=== PATIENT | female | born 1960 | race Caucasian/White ===

== ENCOUNTER 2021-04-16 15:41 | Inpatient (IN) ==
[2021-04-16] MEDS ORDERED: fentaNYL 100 mcg/2 ml 50 MCG/ML VIAL ONE (15:52)
[2021-04-16] MEDS ORDERED: Midazolam 5 mg/5 ml VIAL 1 mg/ml 5 ml VIAL (5 mg) ONE (15:52)
[2021-04-16] MEDS ORDERED: Lidocaine 1% VIAL 10 MG/ML VIAL ONE (15:52)
[2021-04-16] MEDS ORDERED: nitroGLYCERIN DRIP 25,000 MCG/250 ML BTL ONE (15:52)
[2021-04-16] MEDS ORDERED: VERAPAMIL 2.5 MG/ML 2 ML VIAL ** 5 mg/2 ml ONE (15:52)
[2021-04-16] MEDS ORDERED: Heparin 1,000 UNIT/ML 10 ml (10,000 UNITS) CATHLAB/DIALYSIS ONE (15:52)
[2021-04-16] MEDS ORDERED: Heparin 2 UNITS/ML 1000 mls 2,000 ML IV ONE (15:52)
[2021-04-16] MEDS ORDERED: Iohexol 350 (CONTRAST) 200 ML MDV IV ONE (15:53)
[2021-04-16 16:04] LABS: ABS Basophils 0.1 10^3/ul (0-0.2); ABS Eosinophils 0.3 10^3/ul (0-0.6); ABS Lymphocytes 1.4 10^3/ul (1.0-4.8); ABS Monocytes 0.5 10^3/ul (0-0.8); ABS Neutrophils 9.2 10^3/ul (1.5-7.7); Eosinophil % 2.5 %; Hematocrit 39 % (35-47); Hemoglobin 13.7 g/dL (12.0-16.0); Lymphocyte % 12.4 %; Mean Corpuscular HGB Conc 35 g/dL (31-36); Mean Corpuscular Hemoglobin 32 pg (27-31); Mean Corpuscular Volume 91 fL (80-97); Mean Platelet Volume 7.3 fL (7.4-10.4); Platelet Count 301 10^3/uL (150-450); Red Blood Count 4.29 10^6 /uL (3.70-4.87); Red Cell Distribution Width 13 % (10-15); White Blood Count 11.5 10^3/uL (3.5-10.8)
[2021-04-16 16:18] LABS: ALT 20 U/L (7-52); AST 21 U/L (13-39); Albumin 4.2 g/dL (3.2-5.2); Albumin/Globulin Ratio 1.4 (1-3); Alkaline Phosphatase 75 U/L (35-149); Anion Gap 5 mmol/L (2-11); Blood Urea Nitrogen 21 mg/dL (6-24); CO2 Carbon Dioxide 23 mmol/L (22-32); Calcium 8.8 mg/dL (8.6-10.3); Chloride 106 mmol/L (101-111); Creatine Kinase 135 U/L (10-223); EGFR Non-African American 90.1 (>60); Globulin 2.9 g/dL (2-4); Glucose 177 mg/dL (70-100); LDL Cholesterol Direct 105 mg/dL; Potassium 3.7 mmol/L (3.5-5.0); Sodium 134 mmol/L (135-145); Total Protein 7.1 g/dL (6.4-8.9)
[2021-04-16] MEDS ORDERED: Bivalirudin 250 MG VIAL ONE (16:19)
[2021-04-16 16:23] LABS: Troponin I 0.93 ng/mL (<0.03)
[2021-04-16 16:24] LABS: CKMB ng/mL 12.3 ng/mL (0.6-6.3)
[2021-04-16 16:41] LABS: Activated Partial Thrombo Time >240.0 seconds (26.0-38.0)
[2021-04-16] MEDS ORDERED: NS 0.9% 1000 ml BAG 1,000 ML IV SCH (17:15)
[2021-04-16 18:58] LABS: Troponin I 2.38 ng/mL (<0.03)
[2021-04-17] MEDS ORDERED: NS 0.9% 1000 ml BAG 1,000 ML IV SCH (02:15)
[2021-04-17 04:18] LABS: ABS Basophils 0.1 10^3/ul (0-0.2); ABS Eosinophils 0.2 10^3/ul (0-0.6); ABS Lymphocytes 1.3 10^3/ul (1.0-4.8); ABS Monocytes 0.5 10^3/ul (0-0.8); ABS Neutrophils 6.3 10^3/ul (1.5-7.7); Eosinophil % 2.8 %; Hematocrit 35 % (35-47); Hemoglobin 12.5 g/dL (12.0-16.0); Lymphocyte % 15.6 %; Mean Corpuscular HGB Conc 36 g/dL (31-36); Mean Corpuscular Hemoglobin 32 pg (27-31); Mean Corpuscular Volume 89 fL (80-97); Mean Platelet Volume 7.3 fL (7.4-10.4); Platelet Count 286 10^3/uL (150-450); Red Blood Count 3.95 10^6 /uL (3.70-4.87); Red Cell Distribution Width 13 % (10-15); White Blood Count 8.4 10^3/uL (3.5-10.8)
[2021-04-17 04:35] LABS: Blood Urea Nitrogen 19 mg/dL (6-24); CO2 Carbon Dioxide 21 mmol/L (22-32); Calcium 8.3 mg/dL (8.6-10.3); Cholesterol 164 mg/dL; EGFR African American 121.5 (>60); EGFR Non-African American 100.4 (>60); Glucose 112 mg/dL (70-100); HDL Cholesterol 55.9 mg/dL; LDL Cholesterol 81 mg/dL; Potassium 3.6 mmol/L (3.5-5.0); Sodium 140 mmol/L (135-145); Triglycerides 137 mg/dL
[2021-04-17 04:38] LABS: Anion Gap 7 mmol/L (2-11); Chloride 112 mmol/L (101-111)
[2021-04-17 04:40] LABS: Troponin I 3.53 ng/mL (<0.03)
[2021-04-17] MEDS ORDERED: Potassium Chlor 20 meq TAB.ER PO ONE (07:21)
[2021-04-17] MEDS ORDERED: KCL 20 MEQ/100 ML IVPREMIX 20 MEQ/100 ML BAG IV SCH (08:00)
[2021-04-17] MEDS ORDERED: Potassium Chloride LIQUID 20 MEQ/15 ML LIQUID PO ONE (08:44)
[2021-04-17] MEDS ORDERED: Perflutren Lipid Microsphere 3 ML VIAL ONE (10:35)
[2021-04-17 12:01] LABS: Troponin I 1.98 ng/mL (<0.03)
[2021-04-19 08:06] VITALS: BP 108/58
== END 2021-04-19 11:25 | disposition home or self-care (01) | DRG 247 ==
LOC: ED 15:41 → CHICATH 16:12 → MEDTELE 16:20 → ICU 17:11 → MEDTELE 04-17 16:13
PROVIDERS: ATTEND Internal Medicine